=== PATIENT | male | born 1995 | race Two or more races ===

== ENCOUNTER 2018-02-11 06:34 | Inpatient (IN) | payer SELFPAY ==
[~2018-02-11] VITALS: Ht 172.7 cm; Wt 80.7 kg
[2018-02-11 06:27] VITALS: BP 142/85
[~2018-02-11 06:34] MED LIST: ALBUTEROL2.5 MG/3 M INH
--- NOTE | 2018-02-11 06:41 | Emergency Room Report ---
History of Present Illness General Chief Complaint: Behavioral Complaint Source: Patient (Eduardo Andrew MD) Present Illness HPI The patient was brought in by EMS. Apparently he was running in traffic. He states he has a history of paranoia but denies taking prior medication. He cut his hand from falling. Paramedics dressed the wound. He claims he jumped off a wall (how he cut his hand). Scraped his knee also. Denies cough, NVD, dysuria, headache. (Eduardo Andrew MD) Allergies: Coded Allergies: No Known Allergies (Unverified , 02/11/18) Patient History Past Medical History: see triage record Social History: Reports: drug use Social History Narrative on streets Reviewed Nursing Documentation: PMH: Agreed; PSxH: Agreed (Eduardo Andrew MD) Nursing Documentation-PMH Hx Asthma: Yes (Eduardo Andrew MD) Review of Systems All Other Systems: negative except mentioned in HPI (Eduardo Andrew MD) Physical Exam Vital Signs Date Time Temp Pulse Resp B/P (MAP) Pulse Ox O2 Delivery O2 Flow Rate FiO2 02/11/18 06:22 98.2 84 17 142/85 95 Room Air Sp02 EP Interpretation: reviewed, normal General Appearance: well appearing, no apparent distress, GCS 15, other Head: normocephalic Eyes: bilateral eye normal inspection, bilateral eye fluoroscene uptake, bilateral eye Scleral Injection ENT: moist mucus membranes Neck: supple Respiratory: lungs clear, normal breath sounds Cardiovascular #1: regular rate, rhythm Cardiovascular #2: 2+ radial (R) Gastrointestinal: normal inspection, normal bowel sounds, non tender, no mass, non-distended Musculoskeletal: back normal, gait/station normal, normal range of motion Neurologic: alert, gas appliance adjuster III-XII nml as tested, motor strength/tone normal, sensory intact, oriented - X2 Skin: normal inspection, warm/dry, laceration - R hand palm between ring and little fingers (Eduardo Andrew MD) Procedures Laceration/Wound Repair Laceration/Wound Repair : Consent: Verbal Wound Location: upper extremity - Left hand Wound Length (cm): 2 Wound Explored: clean Irrigated w/ Saline (ccs): 20 Betadine Prep?: Yes Anesthesia: 1% Lidocaine Volume Anesthetic (ccs): 1 Wound Debrided: none Wound Repaired With: sutures Suture Size/Type: 5:0 Sterile Dressing Applied?: Yes Splint Applied?: No Patient Tolerated: Well Complications: None (Eduardo Andrew MD) Medical Decision Making Diagnostic Impression: Primary Impression: Paranoid ideation Additional Impressions: Amphetamine abuse Renal insufficiency Hand laceration Qualified Codes: S61.411A - Laceration without foreign body of right hand, initial encounter ER Course Patient presents with paranoid ideation. Denies prior psychiatric medication. Differential includes a drug ingestion, exacerbation of schizophrenia, electrolyte imbalance amongst others. There is no evidence of head trauma. He also has a laceration on his right hand needs wound care. His tetanus is up-to- date. He will be evaluated with labs. He will be treated with Ativan, Zyprexa and Tylenol. Labs with renal insufficiency elevated CK and + amphetamines. IV hydration ordered. Not allowing suture repair (not refusing, but not staying still for repair). Patient pulled out IV. More sedation ordered. Sedated. Sutured. IV hydration restarted. CXR as leukocytosis. Will need to repeat labs after hydration. Patient slightly more awake, but still not able to converse or answer if still paranoid. Continued observation. Discussed with Dr. Palacios. Repeat labs with improved WBC and renal function. CK slightly elevated. Plan continued hydration. Signed out to Dr. Gonzalez. Laboratory Tests Test 02/11/18 06:55 02/11/18 16:10 White Blood Count 21.0 K/UL (4.8-10.8) H 8.9 K/UL (4.8-10.8) # Red Blood Count 5.77 M/UL (4.70-6.10) 4.74 M/UL (4.70-6.10) Hemoglobin 17.9 G/DL (14.2-18.0) 14.8 G/DL (14.2-18.0) Hematocrit 51.0 % (42.0-52.0) 41.8 % (42.0-52.0) L Mean Corpuscular Volume 88 FL (80-99) 88 FL (80-99) Mean Corpuscular Hemoglobin 31.0 PG (27.0-31.0) 31.2 PG (27.0-31.0) H Mean Corpuscular Hemoglobin Concent 35.1 G/DL (32.0-36.0) 35.3 G/DL (32.0-36.0) Red Cell Distribution Width 10.3 % (11.6-14.8) L 10.6 % (11.6-14.8) L Platelet Count 231 K/UL (150-450) 163 K/UL (150-450) Mean Platelet Volume 7.5 FL (6.5-10.1) 7.8 FL (6.5-10.1) Neutrophils (%) (Auto) % (45.0-75.0) 70.2 % (45.0-75.0) Lymphocytes (%) (Auto) % (20.0-45.0) 16.7 % (20.0-45.0) L Monocytes (%) (Auto) % (1.0-10.0) 12.3 % (1.0-10.0) H Eosinophils (%) (Auto) % (0.0-3.0) 0.1 % (0.0-3.0) Basophils (%) (Auto) % (0.0-2.0) 0.6 % (0.0-2.0) Differential Total Cells Counted 100 Neutrophils % (Manual) 88 % (45-75) H Lymphocytes % (Manual) 8 % (20-45) L Monocytes % (Manual) 4 % (1-10) Eosinophils % (Manual) 0 % (0-3) Basophils % (Manual) 0 % (0-2) Band Neutrophils 0 % (0-8) Platelet Estimate Adequate Platelet Morphology Normal Red Blood Cell Morphology Normal Urine Color Pale yellow Urine Appearance Clear Urine pH 6 (4.5-8.0) Urine Specific [place] 1.005 (1.005-1.035) Urine Protein 2+ (NEGATIVE) H Urine Glucose (UA) Negative (NEGATIVE) Urine Ketones Negative (NEGATIVE) Urine Blood Negative (NEGATIVE) Urine Nitrite Negative (NEGATIVE) Urine Bilirubin Negative (NEGATIVE) Urine Urobilinogen Normal MG/DL (0.0-1.0) Urine Leukocyte Esterase Negative (NEGATIVE) Urine RBC 0-2 /HPF (0 - 0) H Urine WBC 0 /HPF (0 - 0) Urine Squamous Epithelial Cells Occasional /LPF Urine Bacteria Occasional /HPF (NONE) Urine Mucus Few /LPF (NONE/OCC) H Sodium Level 140 MMOL/L (136-145) 143 MMOL/L (136-145) Potassium Level 3.4 MMOL/L (3.5-5.1) L 4.1 MMOL/L (3.5-5.1) Chloride Level 99 MMOL/L (98-107) 107 MMOL/L (98-107) Carbon Dioxide Level 23 MMOL/L (21-32) 26 MMOL/L (21-32) Anion Gap 18 mmol/L (5-15) H 10 mmol/L (5-15) Blood Urea Nitrogen 23 mg/dL (7-18) H 22 mg/dL (7-18) H Creatinine 1.6 MG/DL (0.55-1.30) H 1.3 MG/DL (0.55-1.30) Estimate Glomerular Filtration Rate 54.3 mL/min (>60) > 60 mL/min (>60) Glucose Level 123 MG/DL (74-106) H 81 MG/DL (74-106) Calcium Level 9.9 MG/DL (8.5-10.1) 8.8 MG/DL (8.5-10.1) Total Bilirubin 1.0 MG/DL (0.2-1.0) 1.1 MG/DL (0.2-1.0) H Aspartate Amino Transferase (AST) 43 U/L (15-37) H 53 U/L (15-37) H Alanine Aminotransferase (ALT) 31 U/L (12-78) 27 U/L (12-78) Alkaline Phosphatase 100 U/L (46-116) 76 U/L (46-116) Total Creatine Kinase 1353 U/L (26-308) H 3487 U/L (26-308) H Total Protein 10.3 G/DL (6.4-8.2) H 7.7 G/DL (6.4-8.2) Albumin 5.0 G/DL (3.4-5.0) 3.8 G/DL (3.4-5.0) Globulin 5.3 g/dL 3.9 g/dL Albumin/Globulin Ratio 0.9 (1.0-2.7) L 1.0 (1.0-2.7) Salicylates Level 0.5 ug/mL (2.8-20) L Urine Opiates Screen Negative (NEGATIVE) Acetaminophen Level < 2 MCG/ML (10-30) L Urine Barbiturates Screen Negative (NEGATIVE) Phencyclidine (PCP) Screen Negative (NEGATIVE) Urine Amphetamines Screen Positive (NEGATIVE) H Urine Benzodiazepines Screen Negative (NEGATIVE) Urine Cocaine Screen Negative (NEGATIVE) Urine Marijuana (THC) Screen Positive (NEGATIVE) H Serum Alcohol < 3 mg/dL Direct Bilirubin 0.2 MG/DL (0.0-0.3) (Eduardo Andrew MD) ER Course Patient was noted to have increasing CPK. The patient be admitted for rhabdomyolysis and IV hydration. Dr. Randall Subramanian was contacted for inpatient management Labs Test 02/11/18 06:55 02/11/18 16:10 02/12/18 00:20 Differential Total Cells Counted 100 Neutrophils % (Manual) 88 % (45-75) Lymphocytes % (Manual) 8 % (20-45) Monocytes % (Manual) 4 % (1-10) Eosinophils % (Manual) 0 % (0-3) Basophils % (Manual) 0 % (0-2) Band Neutrophils 0 % (0-8) Platelet Estimate Adequate Platelet Morphology Normal Red Blood Cell Morphology Normal Urine Color Pale yellow Urine Appearance Clear Urine pH 6 (4.5-8.0) Urine Specific [place] 1.005 (1.005-1.035) Urine Protein 2+ (NEGATIVE) Urine Glucose (UA) Negative (NEGATIVE) Urine Ketones Negative (NEGATIVE) Urine Blood Negative (NEGATIVE) Urine Nitrite Negative (NEGATIVE) Urine Bilirubin Negative (NEGATIVE) Urine Urobilinogen Normal MG/DL (0.0-1.0) Urine Leukocyte Esterase Negative (NEGATIVE) Urine RBC 0-2 /HPF (0 - 0) Urine WBC 0 /HPF (0 - 0) Urine Squamous Epithelial Cells Occasional /LPF Urine Bacteria Occasional /HPF (NONE) Urine Mucus Few /LPF (NONE/OCC) Salicylates Level 0.5 ug/mL (2.8-20) Urine Opiates Screen Negative (NEGATIVE) Acetaminophen Level < 2 MCG/ML (10-30) Urine Barbiturates Screen Negative (NEGATIVE) Phencyclidine (PCP) Screen Negative (NEGATIVE) Urine Amphetamines Screen Positive (NEGATIVE) Urine Benzodiazepines Screen Negative (NEGATIVE) Urine Cocaine Screen Negative (NEGATIVE) Urine Marijuana (THC) Screen Positive (NEGATIVE) Serum Alcohol < 3 mg/dL White Blood Count 8.9 K/UL (4.8-10.8) Red Blood Count 4.74 M/UL (4.70-6.10) Hemoglobin 14.8 G/DL (14.2-18.0) Hematocrit 41.8 % (42.0-52.0) Mean Corpuscular Volume 88 FL (80-99) Mean Corpuscular Hemoglobin 31.2 PG (27.0-31.0) Mean Corpuscular Hemoglobin Concent 35.3 G/DL (32.0-36.0) Red Cell Distribution Width 10.6 % (11.6-14.8) Platelet Count 163 K/UL (150-450) Mean Platelet Volume 7.8 FL (6.5-10.1) Neutrophils (%) (Auto) 70.2 % (45.0-75.0) Lymphocytes (%) (Auto) 16.7 % (20.0-45.0) Monocytes (%) (Auto) 12.3 % (1.0-10.0) Eosinophils (%) (Auto) 0.1 % (0.0-3.0) Basophils (%) (Auto) 0.6 % (0.0-2.0) Sodium Level 141 MMOL/L (136-145) Potassium Level 3.5 MMOL/L (3.5-5.1) Chloride Level 104 MMOL/L (98-107) Carbon Dioxide Level 27 MMOL/L (21-32) Anion Gap 10 mmol/L (5-15) Blood Urea Nitrogen 21 mg/dL (7-18) Creatinine 1.4 MG/DL (0.55-1.30) Estimat Glomerular Filtration Rate > 60 mL/min (>60) Glucose Level 89 MG/DL (74-106) Calcium Level 8.8 MG/DL (8.5-10.1) Total Bilirubin 1.2 MG/DL (0.2-1.0) Direct Bilirubin 0.2 MG/DL (0.0-0.3) Aspartate Amino Transf (AST/SGOT) 69 U/L (15-37) Alanine Aminotransferase (ALT/SGPT) 30 U/L (12-78) Alkaline Phosphatase 84 U/L (46-116) Total Creatine Kinase 4088 U/L (26-308) Total Protein 8.2 G/DL (6.4-8.2) Albumin 4.0 G/DL (3.4-5.0) Globulin 4.2 g/dL Albumin/Globulin Ratio 1.0 (1.0-2.7) (Taran Arevalo MD) EKG Diagnostic Results Rate: tachycardiac ST Segments: no acute changes (Eduardo Andrew MD) Rhythm Strip Diag. Results EP Interpretation: yes Rhythm: no PVC's, no ectopy, other - ST (Eduardo Andrew MD) Chest X-Ray Diagnostic Results Chest X-Ray Diagnostic Results : Chest X-Ray Ordered: Yes # of Views/Limited/Complete: 1 View Indication: Other EP Interpretation: Yes Interpretation: no consolidation, no effusion, no pneumothorax Impression: No acute disease Electronically Signed by: Electronically signed by Eduardo Andrew MD (Eduardo Andrew MD) Last Vital Signs Date Time Temp Pulse Resp B/P (MAP) Pulse Ox O2 Delivery O2 Flow Rate FiO2 02/11/18 09:14 98.6 76 18 138/82 97 Room Air Status: improved (Eduardo Andrew MD) Status: unchanged (Taran Arevalo MD) Disposition: ADMITTED INPATIENT Condition: Serious Eduardo Andrew MD Feb 11, 2018 06:41 Taran Arevalo MD Feb 12, 2018 05:55
[2018-02-11] MEDS ORDERED: LORazepam 1mg tab ORAL ONE (06:45)
[2018-02-11] MEDS ORDERED: Bacitracin Oint UD TOPIC ONE ×3 (06:45→08:45)
[2018-02-11 07:12] LABS: APPEARANCE,URINE CLEAR; BILIRUBIN, URINE NEGATIVE (NEGATIVE); COLOR,URINE PALE YELLOW; GLUCOSE, URINE (UA) NEGATIVE (NEGATIVE); KETONES,URINE NEGATIVE (NEGATIVE); LEUKOCYTE ESTERASE ,URINE NEGATIVE (NEGATIVE); NITRITE,URINE NEGATIVE (NEGATIVE); PH,URINE 6 (4.5-8.0); PROTEIN,URINE 2+ (NEGATIVE); UROBILINOGEN,URINE NORMAL MG/DL (0.0-1.0)
[2018-02-11 07:17] LABS: HEMOGLOBIN 17.9 G/DL (14.2-18.0); MEAN CORPUSCULAR VOLUME 88 FL (80-99); PLATELET COUNT 231 K/UL (150-450); RED BLOOD COUNT 5.77 M/UL (4.70-6.10); RED CELL DISTRIBUTION WIDTH 10.3 % (11.6-14.8)
[2018-02-11 07:26] LABS: ANION GAP 18 mmol/L (5-15); BLOOD UREA NITROGEN 23 mg/dL (7-18); CALCIUM 9.9 MG/DL (8.5-10.1); CARBON DIOXIDE 23 MMOL/L (21-32); CHLORIDE 99 MMOL/L (98-107); CREATININE 1.6 MG/DL (0.55-1.30); POTASSIUM 3.4 MMOL/L (3.5-5.1); SODIUM 140 MMOL/L (136-145)
[2018-02-11 07:34] LABS: ALANINE AMINOTRANSFERASE 31 U/L (12-78); ALBUMIN/GLOBULIN RATIO 0.9 (1.0-2.7); ALKALINE PHOSPHATASE 100 U/L (46-116); ASPARTATE AMINO TRANSFERASE 43 U/L (15-37); CREATINE KINASE 1353 U/L (26-308)
[2018-02-11] MEDS ORDERED: Haloperidol 5mg/ml Inj IM ONE (07:45)
[2018-02-11] MEDS ORDERED: DiphenhydrAMINE 50mg/ml Inj IM ONE (07:45)
[2018-02-11 09:14] VITALS: BP 138/82
--- NOTE | 2018-02-11 09:35 | Diagnostic Imaging Report ---
Indication: Chest pain Technique: One view of the chest Comparison: none Findings: Lungs and pleural spaces are clear. Heart size is normal Impression: No acute process
[2018-02-11 12:10] VITALS: BP 122/70
[2018-02-11 15:00] VITALS: BP 128/85
[2018-02-11 16:50] LABS: BASOPHILS % (AUTO) 0.6 % (0.0-2.0); EOSINOPHILS % (AUTO) 0.1 % (0.0-3.0); HEMATOCRIT 41.8 % (42.0-52.0); HEMOGLOBIN 14.8 G/DL (14.2-18.0); LYMPHOCYTES % (AUTO) 16.7 % (20.0-45.0); MEAN CORPUSCULAR VOLUME 88 FL (80-99); MONOCYTES % (AUTO) 12.3 % (1.0-10.0); NEUTROPHILS % (AUTO) 70.2 % (45.0-75.0); PLATELET COUNT 163 K/UL (150-450); RED BLOOD COUNT 4.74 M/UL (4.70-6.10); RED CELL DISTRIBUTION WIDTH 10.6 % (11.6-14.8); WHITE BLOOD COUNT 8.9 K/UL (4.8-10.8)
[2018-02-11 17:04] LABS: ANION GAP 10 mmol/L (5-15); BLOOD UREA NITROGEN 22 mg/dL (7-18); CALCIUM 8.8 MG/DL (8.5-10.1); CARBON DIOXIDE 26 MMOL/L (21-32); CHLORIDE 107 MMOL/L (98-107); CREATININE 1.3 MG/DL (0.55-1.30); POTASSIUM 4.1 MMOL/L (3.5-5.1); SODIUM 143 MMOL/L (136-145)
[2018-02-11 17:35] LABS: ALANINE AMINOTRANSFERASE 27 U/L (12-78); ALBUMIN 3.8 G/DL (3.4-5.0); ALKALINE PHOSPHATASE 76 U/L (46-116); ASPARTATE AMINO TRANSFERASE 53 U/L (15-37); BILIRUBIN,TOTAL 1.1 MG/DL (0.2-1.0); CREATINE KINASE 3487 U/L (26-308)
[2018-02-11 17:36] LABS: BILIRUBIN,DIRECT 0.2 MG/DL (0.0-0.3)
[2018-02-11 18:05] VITALS: BP 130/75
[2018-02-11 21:00] VITALS: BP 122/78
[2018-02-12] MEDS ORDERED: Sodium Chloride 500ML 500 ML IV ONE (00:30)
[2018-02-12 00:50] LABS: ANION GAP 10 mmol/L (5-15); BLOOD UREA NITROGEN 21 mg/dL (7-18); CALCIUM 8.8 MG/DL (8.5-10.1); CARBON DIOXIDE 27 MMOL/L (21-32); CHLORIDE 104 MMOL/L (98-107); CREATININE 1.4 MG/DL (0.55-1.30); POTASSIUM 3.5 MMOL/L (3.5-5.1); SODIUM 141 MMOL/L (136-145)
[2018-02-12 01:04] LABS: ALANINE AMINOTRANSFERASE 30 U/L (12-78); ALKALINE PHOSPHATASE 84 U/L (46-116); ASPARTATE AMINO TRANSFERASE 69 U/L (15-37); BILIRUBIN,TOTAL 1.2 MG/DL (0.2-1.0); CREATINE KINASE 4088 U/L (26-308)
[2018-02-12 01:11] LABS: BILIRUBIN,DIRECT 0.2 MG/DL (0.0-0.3)
[2018-02-12] MEDS ORDERED: LR 1000ml 1,000 ML IV SCH (01:45)
[2018-02-12 02:00] VITALS: BP 132/76
[2018-02-12 04:34] VITALS: BP 124/80
[2018-02-12 05:06] VITALS: BP 129/85
[2018-02-12 08:00] VITALS: BP 139/81
[2018-02-12 09:04] LABS: ALANINE AMINOTRANSFERASE 30 U/L (12-78); ALBUMIN 3.4 G/DL (3.4-5.0); ALBUMIN/GLOBULIN RATIO 0.9 (1.0-2.7); ALKALINE PHOSPHATASE 75 U/L (46-116); ANION GAP 6 mmol/L (5-15); ASPARTATE AMINO TRANSFERASE 61 U/L (15-37); BILIRUBIN,TOTAL 0.9 MG/DL (0.2-1.0); BLOOD UREA NITROGEN 17 mg/dL (7-18); CALCIUM 8.6 MG/DL (8.5-10.1); CARBON DIOXIDE 29 MMOL/L (21-32); CHLORIDE 106 MMOL/L (98-107); CREATINE KINASE 3651 U/L (26-308); CREATININE 1.2 MG/DL (0.55-1.30); POTASSIUM 3.5 MMOL/L (3.5-5.1); SODIUM 141 MMOL/L (136-145)
--- NOTE | 2018-02-12 17:50 | Cardiology Report ---
APPROVED REPORT EKG Measurement Heart [id number] Sinus tachycardia Possible Left atrial enlargement Rightward axis Pulmonary disease pattern Incomplete right bundle branch block Abnormal ECG
--- NOTE | 2018-02-13 03:30 | History and Physical Report ---
DATE OF ADMISSION: 02/12/2018 BRIEF HISTORY: The patient actually left in a couple of hours after admission. He left early in the morning, did not even wait for me to see the patient. I cannot dictate a full H and P since the patient went against medical advice a couple of hours after admission and he left early in the morning, and I could not examine him. The patient was initially admitted for rhabdomyolysis after amphetamine use, rise in and Dr. Holguin, Dr. Madsen, and were consulted. However, the patient left AMA. Randall Woodward M.D. DR: MITCHELL JOB#: [id number] CC:
--- NOTE | 2018-02-13 10:53 | Discharge Summary ---
Discharge Summary Discharge Summary _ DATE OF ADMISSION: 02/12/2018 DATE OF DISCHARGE: 02/12/2018 BRIEF HOSPITAL COURSE: Patient is a 22-year-old male who was brought in by EMS, he has history of paranoia denied taking prior medications. He had a cut on his hand from falling. Paramedics dressed the wound. He claimed he jumped off a wall and scraped his knee. On evaluation at ED, vital signs were stable. Blood work showed leukocytosis. Creatinine was elevated to 1.6, BUN 23. CK was elevated to 1353. Urine toxicology was positive for amphetamine and marijuana. He was admitted for rhabdomyolysis and amphetamine use, however patient left in a couple of hours after admission. FINAL DIAGNOSES: Rhabdomyolysis Drug use DISPOSITION: Patient left AMA. I have been assigned to dictate discharge summary on this account, and I was not involved in the patient's management. Rachel Abraham NP Feb 13, 2018 10:53
== END 2018-02-12 08:50 | disposition left against medical advice (07) | DRG 558 ==
LOC: EDBD 06:34 → EMR 07:59 → EDBEDREQ 02-12 01:25 → 3E 02-12 01:41 → EDBEDREQ 02-12 04:10
PROC: 0HQGXZZ Repair Left Hand Skin, External Approach (ICD-10-PCS; principal; 2018-02-12)
DX: M62.82 Rhabdomyolysis (principal); F15.10 Other stimulant abuse, uncomplicated; F22 Delusional disorders; S61.412A Laceration without foreign body of left hand, initial encounter; S80.219A Abrasion, unspecified knee, initial encounter; W17.89XA Other fall from one level to another, initial encounter
CPT/HCPCS: 36415; 71045; 80053; 80307; 80329; 81003; 82248; 82550; 85007; 85025; 93005; 96360; 96372; 99284